=== PATIENT | female | born 2000 | race Caucasian/White ===

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

== ENCOUNTER 2021-11-07 21:58 | Emergency (ER) | payer OTHER ==
[~2021-11-07] VITALS: Ht 172.7 cm; Wt 90.7 kg
[2021-11-07 22:30] VITALS: BP 117/72
--- NOTE | 2021-11-07 22:33 | NUR ---
TO LOBBY A/W BED AMBULATORY
[2021-11-07] MEDS ORDERED: LIDOCAINE MPF 1% 10 MG/ML VIAL INJ ONE (23:55)
--- NOTE | 2021-11-08 00:26 | NUR ---
ERMD AT BEDSIDE
[2021-11-08] MEDS ORDERED: IBUP-2213 PO (00:47)
[2021-11-08] MEDS ORDERED: CLIN300C2 PO (00:47)
[2021-11-08 01:20] VITALS: BP 125/72
--- NOTE | 2021-11-08 01:20 | NUR ---
Patient discharged with v/s stable. Written and verbal after care instructions given and explained. Patient alert, oriented and verbalized understanding of instructions. Ambulatory with steady gait. All questions addressed prior to discharge. ID band removed. Patient advised to follow up with PMD. Rx of CLECIN, IBUPROFEB given.
--- NOTE | 2021-11-08 01:20 | NUR ---
Chart checked and completed.
== END 2021-11-08 01:20 | disposition home or self-care (01) ==
LOC: MED 21:58
DX: L03.012 Cellulitis of left finger (principal)
CPT/HCPCS: 11730; 99284; J2001